=== PATIENT | male | born 1980 | race Caucasian/White ===

== ENCOUNTER 2018-11-04 06:35 | Emergency (ER) | payer OTHER, SELFPAY ==
[2018-11-04 06:42] VITALS: BP 117/76; PULSE 104; RESP 16; TEMP 37.3; O2SAT 97
--- NOTE | 2018-11-04 06:44 | ED.GENADUL_ITS ---
Discharge Plan Disposition Patient Disposition: HOME Condition: Stable Discharge Details Chief Complaint: Orthopedic Clinical Impression: Olecranon bursitis, left elbow Primary Care Provider: None,None ED Provider: Cierra Helm Home Meds and New Rx's Prescriptions: New mupirocin 2 % ointment 1 applic TP BID Qty: 22 RF: 0 ibuprofen 600 mg tablet 600 mg PO Q6H PRN (Reason: pain) Qty: 20 RF: 0 Discharge Instructions Instructions: Elbow Bursitis Exercises (GEN), Elbow Bursitis (ED) Additional Instructions: You can take 1000mg tylenol and 600mg ibuprofen every 6 hours for pain as needed Apply the Bactroban to the left elbow twice daily. Keep the Alejandro wrap in place to help with elbow pain and swelling. You will receive a call from care management regarding a follow-up appointment with your primary care doctor within 1 week. Return to the emergency department for fevers, severe worsening of pain or redness that is spreading. Stand Alone Forms: Work Release Discharge Data Discharge Date/Time-TO BE ENTERED AT DEPARTURE: 11/04/18 08:13 Discharge Physician: Cierra Helm Medical Decision Making <Karlo Jacome MD - Last Filed: 11/04/18 06:48> 38 yo male comes in with swelling of his left elbow. Denies any trauma but does a lot of lifting and arm use at work. He denies fevers or rashes. On exam he has an olecranon bursitis, no significant erythema or warmth so doubt septic bursitis. HE has full rom and no swelling of the joint so doubt septic arthritis. Will obtain xray to eval for possible fx though unlikely given lack of trauma pt signed out to oncoming provider pending xray results Differential Diagnosis bursitis, fx <Cierra Helm DO - Last Filed: 11/04/18 12:11> 0700 -- 38-year-old male who presents with left elbow pain and swelling since last night. There are superficial abrasions to the overlying olecranon patient denies any known history of trauma or injury. Tetanus up-to-date. 0755 -- Case was endorsed to follow-up on the x-ray. X-ray notes soft tissue swelling but no fracture. Patient was given Motrin on arrival. Suspect most likely olecranon bursitis, but due to superficial abrasion and mild warmth, will apply topical antibiotics and send home with a prescription for Bactroban. There is a superficial erythema and mild-moderate edema and he has some pain with full extension but good flexion. Doubt obvious septic arthritis at this time and may just be a mild cellulitis in addition to bursitis. Alejandro wrap placed around left elbow. Patient placed on care management list to arrange for follow-up appointment w/ a primary care doctor with plan for referral to orthopedics if symptoms not improve or worsen. Medical Records Medical records reviewed: Yes I reviewed the patient's medical records. Imaging Data Radiologic Study: Radiologist's impression: XR Left Elbow EXAM DATE/TIME: 11/04/2018 6:44 AM CLINICAL HISTORY: 38 years old, male; Elbow; Left; Patient HX: Pain, swelling, no known injury. TECHNIQUE: Imaging protocol: XR Left elbow. Views: 3 or more views. COMPARISON: No relevant prior studies available. FINDINGS: Bones/joints: Normal. Soft tissues: Normal. IMPRESSION: No acute findings. HPI <Karlo Jacome MD - Last Filed: 11/04/18 06:48> General Mode of arrival: ambulatory . Date/Time Provider Initiated Documentation: 11/04/18 06:36 . Limitations to Documentation: no limitations . Information obtained by: patient . History of Present Illness 38 year old M presents to the emergency department with the chief complaint of left elbow pain/swelling, described as moderate, Quality is described as aching, and is localized to the left and upper extremity. Patient reports no radiation. Patient started experiencing this day(s) (1) and it has been constant. No relieving factors improve symptom(s), No exacerbating factors reported . Patient did receive the following treatments prior to arrival, none Related Data Home Medications Medication Instructions Recorded Confirmed ibuprofen 600 mg PO Q6H PRN #20 tab 11/04/18 mupirocin 1 applic TP BID #22 gm 11/04/18 Previous Rx's Medication Instructions Recorded ibuprofen 600 mg PO Q6H PRN #20 tab 11/04/18 mupirocin 1 applic TP BID #22 gm 11/04/18 Allergies Allergy/AdvReac Type Severity Reaction Status Date / Time No Known Allergies Allergy Unverified 11/04/18 06:44 Review of Systems <Karlo Jacome MD - Last Filed: 11/04/18 06:48> Review of Systems All systems reviewed & are unremarkable except as noted in HPI and below Constitutional Denies chills, Denies fever(s) and Denies weakness Cardiovascular Denies chest pain and Denies dyspnea Respiratory Denies dyspnea Gastrointestinal Denies abdominal pain, Denies nausea and Denies vomiting Musculoskeletal Denies joint swelling Integumentary/Breasts Denies rash Neurologic Denies weakness PFSH <Karlo Jacome MD - Last Filed: 11/04/18 06:48> Social History Smoking/Tobacco Use Status: Current every day Tobacco Type: cigarettes Exam <Karlo Jacome MD - Last Filed: 11/04/18 06:48> Const General: no acute distress Orientation: alert HENMT Head: normal to inspection Ears: external ears normal General nose exam: external nose normal Mouth: moist mucous membranes Eyes General: appearance normal, both eyes and all related structures Neck Neck: normal visual inspection Resp Effort & Inspection: normal respiratory effort and able to speak in complete sentences Cardio Rate: regular rate Skin General skin exam: no rashes or lesions noted Neuro General: alert and oriented x3 Extrem General: full ROM and normal capillary refill Psych Mental Status: mental status grossly normal Sign Out <Karlo Jacome MD - Last Filed: 11/04/18 06:48> Sign Out Data: Sign Out Comment: pending left elbow xray, has bursitis on exam Last updated by Karlo Jacome MD at 11/04/18 06:48
[2018-11-04] MEDS: Ibuprofen 600 MG TAB PO (06:47)
--- NOTE | 2018-11-04 06:57 | DI.RAD_ITS ---
SYMPTOM/DIAGNOSIS: PAIN, SWELLING. LEFT ELBOW: No bony or joint abnormality is seen. There is soft tissue swelling over the olecranon. The findings raise the possibility of bursitis in this patient with no recent trauma history.
--- NOTE | 2018-11-04 07:39 | DI.VRAD_ITS ---
EXAM: XR Left Elbow EXAM DATE/TIME: 11/04/2018 6:44 AM CLINICAL HISTORY: 38 years old, male; Elbow; Left; Patient HX: Pain, swelling, no known injury. TECHNIQUE: Imaging protocol: XR Left elbow. Views: 3 or more views. COMPARISON: No relevant prior studies available. FINDINGS: Bones/joints: Normal. Soft tissues: Normal. IMPRESSION: No acute findings. Dictated and Authenticated by: Marco A Abdalla MD. Ordering:LUIS MIGUEL Dietrich MD
--- NOTE | 2018-11-04 08:27 | NUR.NOTE ---
L elbow cleaned, bacitracin applied along with cassidy wrap.Nursing Note:
== END 2018-11-04 08:13 | disposition home or self-care (01) ==
PROVIDERS: Emergency Provider Physician Assistant
DX: M25.422 Effusion, left elbow (principal); M70.22 Olecranon bursitis, left elbow; S50.312A Abrasion of left elbow, initial encounter; X58.XXXA Exposure to other specified factors, initial encounter
CPT/HCPCS: 99283; 73080

== ENCOUNTER 2019-02-08 16:46 | Outpatient (REF) | payer BC, SELFPAY ==
[2019-02-08 19:53] LABS: Anion Gap 11.1 mmol/L (3-11); BUN 9 mg/dL (7-18); CO2 24.9 mmol/L (21.0-32.0); Calcium 9.1 mg/dL (8.5-10.1); Calculated LDL 141 mg/dL; Chloride 103 mmol/L (98-107); Cholesterol 204 mg/dL (50-200); Glucose 90 mg/dL (70-100); HDL Cholesterol 29 mg/dL (40-60); Sodium 139 mmol/L (136-145); Triglyceride 171 mg/dL (30-150)
[2019-02-08 20:17] LABS: HCT 42.8 % (40.0-50.0); HGB 14.6 g/dL (13.5-17.5); Mean Corp. HGB Concentration 34.1 g/dL (32.0-36.0); Mean Corpuscular Volume 88.1 fL (80-95); Mean Platelet Volume 10.3 fL (8.0-11.0); Platelet Count 320 x1000/uL (130-400); RBC 4.86 m/cumm (4.50-6.00); RBC Distribution Width 14.2 % (11.8-14.1); White Blood Cell Count 10.48 k/cumm (4.4-10.8)
== END 2019-02-08 17:06 ==
LOC: NCHCN 16:46
PROVIDERS: PCP Nurse Practitioner Family; Visit Provider Nurse Practitioner Family
DX: Z00.00 Encounter for general adult medical examination without abnormal findings (principal); Z13.220 Encounter for screening for lipoid disorders; Z13.0 Encounter for screening for diseases of the blood and blood-forming organs and certain disorders involving the immune mechanism
CPT/HCPCS: 80048; 80061; 85027